=== PATIENT | male | born 1945 | race Caucasian/White ===

== ENCOUNTER 2016-08-04 08:45 | Day surgery (SDC) | payer MEDICARE ==
[~2016-08-04] VITALS: Ht 176.5 cm; Wt 76.4 kg
[~2016-08-04 08:45] MED LIST: ALPR1TAB7 PO; DOXA8TAB73 PO; MINO100T PO; OMEP40CA36 PO; Sodium Chloride LOK Flush 10 mL Syringe IV PRN; fentaNYL-PF 50 mCg/mL 2 mL Inj IVPUSH PRN
[2016-08-04] MEDS ORDERED: 0.9% Sodium Chloride 1,000 ML ONE (09:37)
[2016-08-04 09:42] VITALS: BP 133/88; PULSE 68; RESP 17; O2SAT 99
[2016-08-04 10:25] VITALS: BP 136/94; PULSE 74; RESP 16; O2SAT 98
--- NOTE | 2016-08-04 10:26 | PCM.ENDCOL ---
Colonoscopy Date of Service: Aug 04, 2016 Physician Raymond Vargas MD Pre Procedure Diagnosis: Screening Post Procedure Dx & Findings: Polyp hemorrhoids diverticuliti Procedure Colonoscopy Prep adequate Withdrawal 13 minutes PROCEDURE IN DETAIL: After unremarkable rectal examination Olympus video colonoscope was inserted into patient's anal canal and was advanced to cecum. Landmarks are identified including ileocecal valve and appendiceal orifice. Scope was withdrawn systematically. The mucosa of the cecum, ascending, transverse, descending, sigmoid, rectal mucosa lined with whitish, pink, smooth, glistening, normal-appearing mucosa, normal fine branching, underlying vascularity, normal haustra. The patient tolerated procedure and was transported to observation area. In the sigmoid colon there were 2 polyps. They are about 2 mm each. These were resected completely using cold snare. Patient had multiple diverticuli all the way to the proximal transverse colon. Small to medium size. In the rectum retroflexion was done which showed hemorrhoids. Anal canal was carefully on the way out and hemorrhoids noted. Impression Polyps Hemorrhoids Diverticuli Recommendation Repeat colonoscopy in 5 years Diverticular diet Presedation Assessment Risks and Benefits Informed consent was obtained from the patient after all risks and benefits including but not limited to drug reaction, infection, pain, bleeding, perforation, as well as alternatives were discussed. Patient monitoring Continuous pulse oximetry, cardiac monitoring, blood pressure monitoring, IV access, and oxygen at 2L per nasal cannula. Periprocedural Fentanyl: Fentanyl 150mcg Incrementally Midazolam: Midazolam 6mg Incrementally Complications There were no periprocedural complications identified. Post Procedure Plan Post Procedure Recommendations 1. Restrict activities today. 2. Resume normal activities in the morning. 3. Resume medications. 4. Patient informed of normal post procedure side effects as bloating, drowsiness, blood streaking in the stool. 5. average risk CRCS. If colon polyps come back as: -Hyperplastic- can repeat colonoscopy in 10 years -Tubular adenoma- repeat colonoscopy in 5 years -Tubulovillous/villous adenoma- repeat colonoscopy in 3 years -If any dysplasia- return to clinic as soon as possible 6. Please don't hesitate to call me with any questions. Raymond Vargas MD Aug 04, 2016 10:26
[2016-08-04 10:35] VITALS: BP 121/78; PULSE 63; RESP 16; O2SAT 100
[2016-08-04 10:45] VITALS: BP 130/88; PULSE 67; RESP 16; O2SAT 100
--- NOTE | 2016-08-08 10:08 | PATH ---
SURGICAL PATHOLOGY Attending Physician:Raymond Vargas M.D. CASE STATUS: Signed Out PATIENT NAME: ELSIE ALSTON PID: [id number] : 1945 DATE COLLECTED:08/04/2016 20:38 SPECIMEN: Colon, Biopsy CLINICAL HISTORY: 1). SIGMOID COLON POLYP X2 FINAL DIAGNOSIS: 1.SIGMOID COLON POLYPS: SESSILE SERRATED ADENOMA INVOLVING SINGLE BIOPSY FRAGMENT. HYPERPLASTIC POLYP INVOLVING SINGLE BIOPSY FRAGMENT. ICD10 CODE D12.5 GROSS DESCRIPTION: The specimen is received in one formalin filled container labeled with the patient's name, sublabeled "sigmoid colon polyps x2" and consists of 2 portions of tissue which aggregate to 0.4 x 0.4 x 0.3 CM. The specimen is entirely submitted in one cassette. 08/04/2016 [facility] MICRO DESCRIPTION: See diagnosis. ICD-9 CODES: CPT CODES: 1: 83932 Electronically Signed Out Miky Hou MD [facility] Pathology [facility] [address], [place] [address] Technical component performed at [facility], [facility] [address], [address]
== END 2016-08-04 23:59 | disposition home or self-care (01) ==
LOC: END 08:45
PROVIDERS: ATTEND Internal Medicine
DX: Z12.11 Encounter for screening for malignant neoplasm of colon (principal); D12.5 Benign neoplasm of sigmoid colon; K63.5 Polyp of colon; K57.30 Diverticulosis of large intestine without perforation or abscess without bleeding; K64.9 Unspecified hemorrhoids
CPT/HCPCS: 45385; 99153; G0500; J2250; J3010; J7030